=== PATIENT | male | born 2005 | race Caucasian/White ===

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

== ENCOUNTER 2024-06-08 10:40 | Outpatient (CLI) | payer BC, SELFPAY ==
[2024-06-08 14:31] LABS: Abs Immature Grans 0.01 10^3/uL (0.0-0.06); Absolute Basophil Count 0.03 10^3/uL (0.0-0.2); Absolute Eosinophil Count 0.24 10^3/uL (0.0-0.7); Absolute Lymphocyte Count 1.89 10^3/uL (1.2-3.4); Absolute Monocyte Count 0.51 10^3/uL (0.1-0.8); Absolute Neutrophil Count 3.08 10^3/uL (1.2-6.7); Basophils % 0.5 %; Eosinophils % 4.2 %; HCT 41.9 % (40.0-50.0); Immature Grans % 0.2 %; Lymphocytes % 32.8 %; MCH 31.7 pg (27.0-33.0); MCHC 33.4 % (32.0-36.0); MCV 95 fL (80-95); MPV 9.8 fL (8.0-11.0); Monocytes % 8.9 %; Neutrophils % 53.4 %; Platelet Count 237 10^3/uL (130-400); RBC 4.42 10^6/uL (4.36-5.78); RDW 11.9 % (11.8-14.1); RDW-SD 41.1 fL; WBC 5.76 10^3/uL (4.4-10.8)
[2024-06-08 14:41] LABS: Calculated LDL 87 mg/dL (<100); Cholesterol 170 mg/dL (<200); HDL Cholesterol 74 mg/dL (40-60); Triglyceride 47 mg/dL (<150)
[2024-06-08 23:52] LABS: HIV-1/2 Ag & Ab Screen Negative (Negative)
[2024-06-09 09:14] LABS: Syphilis Serology (RPR) Negative (Negative)
[2024-06-09 12:30] LABS: Chlamydia Result Negative (Negative); GC Result Negative (Negative)
== END 2024-06-08 10:41 | disposition home or self-care (01) ==
LOC: LBO 06-18 10:40
PROVIDERS: PCP Student in an Organized Health Care Education/Training Program; Visit Provider Pediatrics
DX: Z00.00 Encounter for general adult medical examination without abnormal findings (principal); Z11.3 Encounter for screening for infections with a predominantly sexual mode of transmission
CPT/HCPCS: 36415; 80061; 87389; 87491; 87591; 85025; 86592

== ENCOUNTER 2025-04-07 14:12 | Outpatient (REF) | payer BC, SELFPAY | END 2025-04-07 14:13 | disposition home or self-care (01) | LOC: LBN 14:12 | PROVIDERS: Visit Provider Physician Assistant Medical | DX: J02.9 Acute pharyngitis, unspecified (principal) | CPT/HCPCS: 87081 ==